=== PATIENT | male | born 1955 | race Caucasian/White ===

== ENCOUNTER → 2017-01-16 | Outpatient (CLI) | payer BC, OTHER ==
[~2017-01-16] VITALS: Ht 167.6 cm; Wt 78.7 kg
[~2017-01-16] MED LIST: ALEVE220 MG PO; ASPIR 8181 MG PO; CELEBREX 200 M200 MG PO; MOBIC15 MG PO; NABUMETONE 500500 M1 PO
--- NOTE | ~2017-01-16 | HPC ---
[facility] [place] [address] PAIN MANAGEMENT CONSULTATION Name: JERAMIN GOSS Room #: REG VINCE Mckeon#: [id number] Admission: 01/16/17 Attend Phys: Pollo Vázquez DO Discharge: Date of : 55 Report #: [id number] THIS REPORT FOR: //name// CC: Tesfaye Vázquez DATE OF SERVICE: 01/16/2017 HISTORY OF PRESENT ILLNESS: The patient is a 61-year-old gentleman, prior seen in the pain clinic 11/13/2015, given a right L4-L5 transforaminal epidural injection at that time, somewhat lost to follow up. Returns to pain clinic today, it has been greater than a year since we last saw him, notes pain has begun to recur without any antecedent trauma and overuse. Pain is in the low back, right greater than left leg, posterolateral leg down to the thigh and foot. Pain is exacerbated with sitting with legs crossed or sleeping. Gets some relief with activity. PHYSICAL EXAMINATION: Shows a 61-year-old gentleman, BMI is 28 kg/m2. Vital signs are stable as noted in the EMR. Tender in the low back, positive straight leg raise on the right. Patellar reflex is diminished on the right compared to the left, perhaps 1/4 versus 2/4. Right leg lower extremity flexion strength is modestly diminished compared to the left as well. ASSESSMENT: Symptomatic lumbar radiculopathy by clinical exam and history. RECOMMENDATION: Repeat transforaminal epidural injection today. I have taken the liberty of providing the patient with prescription for Celebrex 200 mg to take one a day for 10-14 days and then discontinue. Follow up simply as needed. PROCEDURE: Transforaminal epidural injection under fluoroscopy. PROCEDURE NOTE: After both written and informed consent was obtained including risk of spinal cord damage, infection, increased pain and paralysis, the patient agreed to proceed. The patient was taken to the fluoroscopy suite, placed in a prone position with appropriate abdominal bolstering. After sterile prep with ChloraPrep and sterile drape, a skin wheal with 1% Xylocaine was raised. A 22 gauge 4-1/2 inch epidural Tuohy needle was inserted. From an oblique approach into the posterior-superior aspect of the right L4-L5 neural foramen with continuous pressure on the glass syringe plunger for loss of resistance. Glass syringe was filled with 2 cc of 0.1 Xylocaine. The glass loss of resistance syringe was removed. A low volume extension tubing was connected, negative aspiration was accomplished for cerebrospinal fluid or blood. 1 mL of Omnipaque was injected which showed spread both within the epidural space and laterally along the nerve root. This was followed with 80 mg of triamcinolone plus 1 mL of 1.5% preservative-free Xylocaine. Needle was partially withdrawn, 0.5 mL of Xylocaine was injected to clear the needle and the needle was removed. The [address] [address] PAIN MANAGEMENT CONSULTATION Name: JERMAIN GOSS Room #: REG VINCE Mckeon#: [id number] Admission: 01/16/17 Attend Phys: Pollo Vázquez DO Discharge: Date of : 55 Report #: [id number] was cleansed, band-aid was applied. The patient was allowed to ambulate to the recovery room, discharged in good and stable condition. <ELECTRONICALLY SIGNED> By: Pollo Vázquez DO 01/18/17 0834 [id number] [id number] Pollo Vázquez DO /nt
[2017-01-16 08:33] VITALS: BP 141/78
== END | disposition home or self-care (01) ==
LOC: PAIN 08:23
DX: M54.16 Radiculopathy, lumbar region (principal)

== ENCOUNTER → 2017-06-09 | Outpatient (CLI) | payer BC, OTHER ==
[~2017-06-09] VITALS: Ht 170.2 cm; Wt 80.7 kg
--- NOTE | ~2017-06-09 | HPC ---
[facility] [place] [address] PAIN MANAGEMENT CONSULTATION Name: JERMAIN GOSS Room #: REG VINCE Mckeon#: [id number] Admission: 06/09/17 Attend Phys: Pollo Vázquez DO Discharge: Date of : 55 Report #: [id number] THIS REPORT FOR: //name// CC: Tesfaye Vázquez The patient is a very pleasant 61-year-old gentleman prior treated for lumbar radiculopathy secondary to spinal stenosis. He has done very well with right L4-L5 transforaminal epidural injection in the past, he had a single injection on 01/16/2017. Prior he had two injections in 2015, May and October. He had three injections in 2014. He returns to the pain clinic today noting the last injection afforded excellent relief greater than 80% for 3-4 months. Pain has gradually begun to recur without antecedent trauma or overuse. Notes pain is in the right leg, lateral aspect of the foot. Does take Celebrex on p.r.n. basis. He has had episodic weakness in the right leg primarily after running and intermittent paresthesia. Notes no focal weakness or myelopathic symptoms. Rates his pain a 5 or 6 on a VAS. It seems to be exacerbated with sleeping and twisting. Golf significantly exacerbates pain in the low back right L4 distribution as well as some chronic pain in the left knee. PHYSICAL EXAMINATION: Shows a pleasant 61-year-old gentleman, BMI 27.9 kilograms per meter squared. Blood pressure 123/86, pulse 51 and respirations 14. Rises from chair using arm rest. Modestly antalgic gait. Grossly positive straight leg raise in the left at 30 degrees. Patellar reflex 1/4 on the left and 2/4 on the right. Achilles reflexes are symmetric. Lower extremity strength is generally symmetric. I reviewed diagnostic studies including somewhat dated MRI of the lumbar spine from 12/23/2013. It does note bilateral facet arthropathy at L3-L4. L4-L5 has generalized disk bulging with facet arthropathy and bilateral facet arthropathy at L5-S1. ASSESSMENT: Symptomatic lumbar radiculopathy with clinical right L4 radicular pain pattern. RECOMMENDATION: Right L4-L5 transforaminal epidural injection today. Follow up in 4 weeks for reevaluation. If symptoms continue, will need a new MRI of the lumbar spine. Continue Celebrex and encouraged more daily use. ASSESSMENT: Symptomatic lumbar radiculopathy secondary to spinal stenosis. PROCEDURE: Transforaminal lumbar epidural injection under fluoroscopy. PROCEDURE NOTE: After both written and informed consent was obtained including risk of spinal cord damage, infection, increased pain and paralysis, [place] [address] PAIN MANAGEMENT CONSULTATION Name: JERMAIN GOSS Room #: REG VINCE Mckeon#: [id number] Admission: 06/09/17 Attend Phys: Pollo Vázquez DO Discharge: Date of : 55 Report #: [id number] agreed to proceed. The patient was taken to the fluoroscopy suite, placed in a prone position with appropriate abdominal bolstering. After sterile prep with ChloraPrep and sterile drape, a skin wheal with 1% Xylocaine was raised. A 22 gauge 4-1/2 inch epidural Tuohy needle was inserted. From an oblique approach into the posterior-superior aspect of the left L4-L5 on the right neural foramen with continuous pressure on the glass syringe plunger for loss of resistance. Glass syringe was filled with 2 cc of 0.1 Xylocaine. The glass loss of resistance syringe was removed. A low volume extension tubing was connected, negative aspiration was accomplished for cerebrospinal fluid or blood. 1 mL of Omnipaque was injected which showed spread both within the epidural space and laterally along the nerve root. This was followed with 80 mg of triamcinolone plus 1 mL of 1.5% preservative-free Xylocaine. Needle was partially withdrawn, 0.5 mL of Xylocaine was injected to clear the needle and the needle was removed. The area was cleansed, band-aid was applied. The patient was allowed to ambulate to the recovery room, discharged in good and stable condition. <ELECTRONICALLY SIGNED> By: Pollo Vázquez DO 06/12/17 0830 1159 0050 Pollo Vázquez DO /nt
[2017-06-09 10:03] VITALS: BP 123/86
== END | disposition home or self-care (01) ==
LOC: PAIN 06:56
DX: M54.16 Radiculopathy, lumbar region (principal); M48.061 Spinal stenosis, lumbar region without neurogenic claudication; Z98.890 Other specified postprocedural states; Z79.82 Long term (current) use of aspirin

== ENCOUNTER → 2018-01-29 | Outpatient (CLI) | payer BC, OTHER ==
[~2018-01-29] VITALS: Ht 170.2 cm; Wt 79.0 kg
[~2018-01-29] MED LIST changes: +OMEPRAZOLE40 MG PO
--- NOTE | ~2018-01-29 | HPC ---
[facility] [place] [address] PAIN MANAGEMENT CONSULTATION Name: JERMAIN GOSS Mark Room #: REG [facility] Dane.#: [id number] Admission: 01/29/18 Attend Phys: Sergey Owens MD Discharge: Date of : 55 Report #: [id number] THIS REPORT FOR: //name// CC: RENÉE Owens DATE OF SERVICE: 01/29/2018 Followup visit for lumbar radiculopathy. HISTORY OF PRESENT ILLNESS: This is my first visit with the patient, who has been seeing Dr. Pollo Vázquez intermittently for epidural injections. He has lumbar radiculopathy secondary to spinal stenosis and has done beautifully with L4-L5 transforaminal injections provided on the right. His symptoms tend to follow more of an L5-S1 distribution, but this shot has been so effective, now we have no plans on changing. His last injection was in May and I have reviewed all of the spot films that we have in the clinic regarding his successful injections performed by Dr. Vázquez prior to his departure from [place]. He remains active. He tries to exercise, enjoys playing golf and his detention. He is hoping to play tomorrow. He notices pain mostly into his right buttock that radiates into the calf and it is severe intensity 4-5/10, described as aching and sharp. Generally worse first thing in the morning, better after exercise. MEDICATIONS: Omeprazole, Celebrex and aspirin. PHYSICAL EXAMINATION: VITAL SIGNS: Blood pressure 126/81, heart rate is 53. He is 5 feet 7 inches, 174 pounds and BMI is 27.3. MUSCULOSKELETAL: He moves easily from sitting to standing position. There are no antalgic features to his gait. Mild tenderness across the low back. Positive straight leg raising, setting in the L5-S1 distribution on the right. Sensation intact. IMPRESSION: Chronic low back pain with radiculopathy secondary to spinal stenosis. Favorable response to transforaminal epidural injections with very limited use; last injection 8 months ago. PROCEDURE: Transforaminal epidural injection, L4-L5, under fluoroscopic guidance. DESCRIPTION OF PROCEDURE: He was taken to the fluoroscopic suite and placed [address] [address] PAIN MANAGEMENT CONSULTATION Name: JERMAIN GOSS Room #: REG [facility]#: [id number] Admission: 01/29/18 Attend Phys: Sergey Owens MD Discharge: Date of : 55 Report #: [id number] prone. Skin prepped with ChloraPrep. Skin anesthetized over the L4-L5 neural foramen. Using triplanar fluoroscopic views, I advanced the needle into the epidural space in the first attempt. There was no blood or CSF aspirated. A milliliter of Omnipaque was injected. Good spread of dye was observed into the epidural space and along the L4 nerve root. It was followed by 3 mL of 0.5% lidocaine mixed with 80 mg of triamcinolone. He tolerated the procedure well, was observed for 45 minutes in the recovery room and discharged. There was some weakness in the leg immediately following the procedure and this resolved. No medications were ordered. He will be seen on an intermittent basis for injections as necessary going forward. By: 0946 [id number] Sergey Owens MD /nt
[2018-01-29 09:03] VITALS: BP 146/81
== END | disposition home or self-care (01) ==
LOC: PAIN 00:34
DX: M54.16 Radiculopathy, lumbar region (principal); M48.061 Spinal stenosis, lumbar region without neurogenic claudication; G89.29 Other chronic pain; Z79.899 Other long term (current) drug therapy; Z79.82 Long term (current) use of aspirin

== ENCOUNTER → 2020-04-16 | Outpatient (CLI) | payer BC, OTHER ==
[~2020-04-16] VITALS: Ht 170.2 cm; Wt 77.0 kg
[~2020-04-16] MED LIST changes: +CELEBREX 200 M200 M1 PO; +QVAR REDIHALE10.6 G1 INH
[2020-04-16 08:57] VITALS: BP 134/81
--- NOTE | 2020-04-16 09:18 | NUR ---
Pain Clinic Assessment: 1. History of Osteoarthritis: Left Lower Extremity History of Rheumatoid Arthritis: Not Applicable 2. Height: 5 ft. 7 in. 170.2 cm. Weight: 169.8 lb. oz. 77.021 kg. Patient's BMI: 26.6 3. Vital Signs: BP: 134/81 Pulse: 51 Resp: 14 Temp: 02 Sat: 98 ECG Mon: 4. Pain Intensity: 6-7 5. Fall Risk: Dizziness: N Needs help standing or walking: N Fallen in the last 3 months: N Fall risk comments: 6. Patient on Blood Thinner: None 7. History of Hypertension: Y 8. Opioid Therapy greater than 6 weeks: N Opiate Contract Signed: 9. Risk Assessment Tool Provided: 10. Functional Assessment Tool: 11. Recreational Drug Use: Never Drug Type: Tobacco Use: Never Smoker Tobacco Type: Amount or Packs/day: How Many Years: Alcohol Use: Yes Frequency: Daily Quant: 1-2
== END | disposition home or self-care (01) ==
LOC: PAIN 06:41
PROVIDERS: ATTEND Anesthesiology Pain Medicine
DX: M54.16 Radiculopathy, lumbar region (principal); M48.061 Spinal stenosis, lumbar region without neurogenic claudication; G89.29 Other chronic pain; I10 Essential (primary) hypertension; Z79.899 Other long term (current) drug therapy

== ENCOUNTER → 2020-05-18 | Outpatient (CLI) | payer BC, OTHER ==
[~2020-05-18] VITALS: Ht 170.2 cm; Wt 77.3 kg
[~2020-05-18] MED LIST changes: +BENICAR20 MG PO
[2020-05-18 12:45] VITALS: BP 129/78
--- NOTE | 2020-05-18 12:58 | NUR ---
Pain Clinic Assessment: 1. History of Osteoarthritis: Left Lower Extremity History of Rheumatoid Arthritis: Not Applicable 2. Height: 5 ft. 7 in. 170.2 cm. Weight: 170.4 lb. oz. 77.293 kg. Patient's BMI: 26.7 3. Vital Signs: BP: 129/78 Pulse: 64 Resp: 14 Temp: 02 Sat: 98 ECG Mon: 4. Pain Intensity: 7 5. Fall Risk: Dizziness: N Needs help standing or walking: N Fallen in the last 3 months: N Fall risk comments: 6. Patient on Blood Thinner: None 7. History of Hypertension: Y 8. Opioid Therapy greater than 6 weeks: N Opiate Contract Signed: 9. Risk Assessment Tool Provided: 10. Functional Assessment Tool: 11. Recreational Drug Use: Never Drug Type: Tobacco Use: Never Smoker Tobacco Type: Amount or Packs/day: How Many Years: Alcohol Use: Yes Frequency: Daily Quant: 2
== END | disposition home or self-care (01) ==
LOC: PAIN 07:35
PROVIDERS: ATTEND Anesthesiology Pain Medicine
DX: M54.16 Radiculopathy, lumbar region (principal); G89.29 Other chronic pain; I10 Essential (primary) hypertension; Z98.890 Other specified postprocedural states; Z79.899 Other long term (current) drug therapy

== ENCOUNTER → 2020-11-26 | Outpatient (CLI) | payer OTHER, BC ==
[~2020-11-26] VITALS: Ht 170.2 cm; Wt 75.2 kg
[2020-11-26 08:55] VITALS: BP 115/80
--- NOTE | 2020-11-26 09:04 | NUR ---
Pain Clinic Assessment: 1. History of Osteoarthritis: Left Lower Extremity History of Rheumatoid Arthritis: Not Applicable 2. Height: 5 ft. 7 in. 170.2 cm. Weight: 165.8 lb. oz. 75.206 kg. Patient's BMI: 26.0 3. Vital Signs: BP: 115/80 Pulse: 60 Resp: 14 Temp: 02 Sat: 100 ECG Mon: 4. Pain Intensity: 5 5. Fall Risk: Dizziness: N Needs help standing or walking: N Fallen in the last 3 months: N Fall risk comments: 6. Patient on Blood Thinner: None 7. History of Hypertension: Y 8. Opioid Therapy greater than 6 weeks: N Opiate Contract Signed: 9. Risk Assessment Tool Provided: 10. Functional Assessment Tool: 11. Recreational Drug Use: Never Drug Type: Tobacco Use: Never Smoker Tobacco Type: Amount or Packs/day: How Many Years: Alcohol Use: Yes Frequency: Daily Quant: 1
== END | disposition home or self-care (01) ==
LOC: PAIN 06:49
PROVIDERS: ATTEND Anesthesiology Pain Medicine
DX: M54.16 Radiculopathy, lumbar region (principal); G89.29 Other chronic pain; I10 Essential (primary) hypertension; M19.90 Unspecified osteoarthritis, unspecified site; Z98.890 Other specified postprocedural states; Z79.899 Other long term (current) drug therapy